=== PATIENT | female | born 1980 | race Caucasian/White ===

== ENCOUNTER 2016-10-05 17:48 | Emergency (ER) | payer OTHER ==
[2016-10-05 18:40] VITALS: BP 114/74
--- NOTE | 2016-10-05 19:18 | UC ---
Eye Complaint HPI - HPI Summary HPI Summary: patient has had a bump over the left eye lid for the past 2 weeks. - History of Current Complaint Chief Complaint: UCEye Stated Complaint: LEFT EYE COMPLAINT Time Seen by Provider: 10/05/16 19:05 Hx Obtained From: Patient Hx Last Menstrual Period: 12/20/16 Onset/Duration: Sudden Onset, Lasting Weeks Timing: Constant Severity Initially: Mild Severity Currently: Moderate Location of Injury: Eye Lid (upper) - Risk Factors Penetrating Injury Risk Factor: Negative Globe Rupture Risk Factors: Negative Acute Glaucoma Risk Factors: Negative Optic Artery Occlusion Risk Factors: Negative - Allergies/Home Medications Allergies/Adverse Reactions: Allergies Allergy/AdvReac Type Severity Reaction Status Date / Time No Known Allergies Allergy Verified 07/01/13 13:37 PMH/Surg Hx/FS Hx/Imm Hx Previously Healthy: Yes - Surgical History Surgical History: Yes Surgery Procedure, Year, and Place: T&A, D&C - Family History Known Family History: Negative: Cardiac Disease, Hypertension - Social History Alcohol Use: Rare Substance Use Type: None Smoking Status (MU): Former Smoker When Did the Patient Quit Smoking/Using Tobacco: 10/31/2014 - Immunization History Most Recent Influenza Vaccination: not this season Review of Systems Constitutional: Negative Skin: Negative Eyes: Other - bump on ENT: Negative Respiratory: Negative Cardiovascular: Negative Gastrointestinal: Negative Genitourinary: Negative Motor: Negative Neurovascular: Negative Musculoskeletal: Negative Neurological: Negative Psychological: Negative All Other Systems Reviewed And Are Negative: Yes Physical Exam Triage Information Reviewed: Yes Appearance: Well-Appearing, Well-Nourished, Pain Distress Vital Signs: Initial Vital Signs Temp 98 F 10/05/16 18:32 Pulse 69 10/05/16 18:32 Resp 16 10/05/16 18:32 BP 114/74 10/05/16 18:32 Pulse Ox 100 10/05/16 18:32 Vital Signs Reviewed: Yes Eye Exam: Normal Eyes: Positive: Conjunctiva Clear ENT: Positive: Hearing grossly normal, Pharynx normal, TMs normal Dental Exam: Normal Neck exam: Normal Neck: Positive: Supple, Nontender, No Lymphadenopathy Respiratory Exam: Normal Respiratory: Positive: Chest non-tender, Lungs clear, Normal breath sounds Cardiovascular Exam: Normal Cardiovascular: Positive: RRR, No Murmur, Pulses Normal Abdominal Exam: Normal Abdomen Description: Positive: Nontender, No Organomegaly, Soft Bowel Sounds: Positive: Present Musculoskeletal Exam: Normal Musculoskeletal: Positive: Strength Intact, ROM Intact, No Edema Neurological Exam: Normal Neurological: Positive: Alert, Muscle Tone Normal Psychological Exam: Normal Skin Exam: Normal Eye Complaint Course/Dx - Course Course Of Treatment: hx obtained, exam performed, meds reviewed, abx cream prescribed. follow up with opthalm. if needed. - Differential Dx/Diagnosis Differential Diagnosis/HQI/PQRI: Conjunctivitis, Corneal Abrasion, Detached Retina, Foreign Body, Keratitis, Penetrating Injury, Periorbital Cellulitis, Other Provider Diagnoses: chalazion Discharge - Discharge Plan Condition: Stable Disposition: HOME Prescriptions: Erythromycin TOPICAL GEL* [Erythromycin OPTH OINT*] 1 applic LEFT EYE TID #1 tube Patient Education Materials: Chalazion (ED) Referrals: Bhavya Hernandez MD [Primary Care Provider] - Additional Instructions: Chalazion: Treatment Antibiotics are not indicated since chalazion is a granulomatous condition. Small chalazia often resolve without intervention. For larger lesions , frequent hot compresses may allow them to drain although typically most clear spontaneously in weeks to months. Symptomatic patients with recalcitrant lesions can be referred to an internet network specialist for incision and curettage or direct glucocorticoid injection [9]. I am prescribing antibiotic treatement. I recommend follow up with the opthamologist if you do not see improvment in 1 - 2 weeks.
== END 2016-10-05 19:25 | disposition home or self-care (01) ==
LOC: UCCORT 17:48
DX: Z87.891 Personal history of nicotine dependence (principal); H00.14 Chalazion left upper eyelid
CPT/HCPCS: 99212; G0463

== ENCOUNTER 2018-04-19 14:58 | Emergency (ER) | payer OTHER ==
[2018-04-19 16:27] VITALS: BP 130/93
--- NOTE | 2018-04-19 16:53 | UC ---
Throat Pain/Nasal Anish HPI - HPI Summary HPI Summary: The patient is a 37-year-old female with about a week history of nasal congestion postnasal drip fever or chills. She has no chest pain or shortness of breath. - History of Current Complaint Chief Complaint: UCGeneralIllness Stated Complaint: SINUS COMPLAINT Time Seen by Provider: 04/19/18 16:48 Hx Obtained From: Patient Hx Last Menstrual Period: currently Onset/Duration: Gradual Onset, Lasting Weeks Severity: Moderate Pain Intensity: 0 Pain Scale Used: 0-10 Numeric Cough: Nonproductive Associated Signs & Symptoms: Positive: Sinus Discomfort, Nasal Discharge Related History: Prior ENT Surgery, T & A - Allergies/Home Medications Allergies/Adverse Reactions: Allergies Allergy/AdvReac Type Severity Reaction Status Date / Time No Known Allergies Allergy Verified 04/19/18 16:27 Home Medications: Home Medications SUMAtriptan TAB* [Imitrex TAB*] 100 mg PO SEE INSTRUCTIONS PRN 04/19/18 [ History Confirmed 04/19/18] PMH/Surg Hx/FS Hx/Imm Hx Previously Healthy: Yes - Surgical History Surgical History: Yes Surgery Procedure, Year, and Place: T&A, D&C - Family History Known Family History: Positive: Diabetes Negative: Cardiac Disease, Hypertension - Social History Alcohol Use: Rare Substance Use Type: None Smoking Status (MU): Former Smoker When Did the Patient Quit Smoking/Using Tobacco: 10/31/2014 - Immunization History Most Recent Influenza Vaccination: not this season Review of Systems All Other Systems Reviewed And Are Negative: Yes Constitutional: Positive: Negative Skin: Positive: Negative Eyes: Positive: Negative ENT: Positive: Sore Throat, Ear Ache, Nasal Discharge Respiratory: Positive: Cough Cardiovascular: Positive: Negative Gastrointestinal: Positive: Negative Genitourinary: Positive: Negative Motor: Positive: Negative Neurovascular: Positive: Negative Musculoskeletal: Positive: Negative Neurological: Positive: Negative Psychological: Positive: Negative Physical Exam Triage Information Reviewed: Yes Appearance: Well-Appearing, No Pain Distress, Well-Nourished Vital Signs: Initial Vital Signs Temp 98.6 F 04/19/18 16:25 Pulse 60 04/19/18 16:25 Resp 18 04/19/18 16:25 BP 130/93 04/19/18 16:25 Pulse Ox 99 04/19/18 16:25 Vital Signs Reviewed: Yes Eyes: Positive: Conjunctiva Clear ENT: Positive: Hearing grossly normal, Nasal congestion, Nasal drainage, TM bulging - R, Left retracted, Sinus tenderness Neck: Positive: Supple, Nontender, No Lymphadenopathy Respiratory: Positive: Chest non-tender, Lungs clear Cardiovascular: Positive: RRR Musculoskeletal: Positive: ROM Intact, No Edema Neurological: Positive: Alert Psychological Exam: Normal Throat Pain/Nasal Course/Dx - Differential Dx/Diagnosis Provider Diagnosis: Acute sinusitis, Bilateral serous otitis media Discharge - Sign-Out/Discharge Documenting (check all that apply): Patient Departure All imaging exams completed and their final reports reviewed: No Studies - Discharge Plan Condition: Stable Disposition: HOME Prescriptions: Azithromycin TAB* [Zithromax TAB*] 250 mg PO DAILY #6 tab Fluconazole 150 MG (NF) [Diflucan 150 mg (NF)] 150 mg PO ONCE #1 tab Patient Education Materials: Sinusitis (ED) Referrals: Purnima Maria NP [Primary Care Provider] - 7 Days (if not better) - Billing Disposition and Condition Condition: STABLE Disposition: Home
== END 2018-04-19 17:00 | disposition home or self-care (01) ==
LOC: UCCORT 14:58
DX: J01.90 Acute sinusitis, unspecified (principal); H65.93 Unspecified nonsuppurative otitis media, bilateral; Z87.891 Personal history of nicotine dependence
CPT/HCPCS: 99211; G0463

== ENCOUNTER 2019-01-20 15:10 | Emergency (ER) | payer OTHER ==
[2019-01-20 15:46] VITALS: BP 102/69
[2019-01-20] MEDS ORDERED: Acetaminophen TAB* 325 MG PO ONE (15:57)
--- NOTE | 2019-01-20 16:03 | UC ---
HPI Febrile Illness - HPI Summary HPI Summary: 38-year-old female who started experiencing upper respiratory illness symptoms with head congestion and sinus pressure 1-1/2 weeks ago. The symptoms have continued but the head congestion improved and it went to her lungs and now she feels like she has a sinus infection as well as productive cough and fever today. 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 She denies any rashes. - History of Current Complaint Chief Complaint: UCGeneralIllness Time Seen by Provider: 01/20/19 15:45 Hx Obtained From: Patient Hx Last Menstrual Period: 01/17/19 Onset/Duration: Started Days Ago - Symptoms started 1-1/2 weeks ago. Timing: Constant Initial Severity: Mild Current Severity: Moderate Pain Intensity: 7 Aggravating Factors: Nothing Associated Signs and Symptoms: Chills, Headache - Mild headache., Nausea - Allergy/Home Medications Allergies/Adverse Reactions: Allergies Allergy/AdvReac Type Severity Reaction Status Date / Time No Known Allergies Allergy Verified 01/20/19 15:38 Home Medications: Home Medications Iud 1 udc VAGINAL ONCE 01/20/19 [History Confirmed 01/20/19] Loperamide CAP* [Imodium CAP*] 4 mg PO Q4H 01/20/19 [History Confirmed 01/20/19] PMH/Surg Hx/FS Hx/Imm Hx Previously Healthy: Yes - Surgical History Surgical History: Yes Surgery Procedure, Year, and Place: T&A, D&C - Family History Known Family History: Positive: Diabetes Negative: Cardiac Disease, Hypertension - Social History Alcohol Use: Rare Substance Use Type: None Smoking Status (MU): Former Smoker When Did the Patient Quit Smoking/Using Tobacco: 10/31/2014 - Immunization History Most Recent Influenza Vaccination: not this season Review of Systems All Other Systems Reviewed And Are Negative: Yes Constitutional: Positive: Fever, Chills ENT: Positive: Nasal Discharge, Sinus Congestion, Sinus Pain/Tenderness Respiratory: Positive: Cough - Productive cough but does not look at the sputum. Gastrointestinal: Positive: Nausea Genitourinary: Positive: Negative Motor: Positive: Negative Neurovascular: Positive: Negative Musculoskeletal: Positive: Negative, Myalgia Neurological: Positive: Negative Psychological: Positive: Negative Is Patient Immunocompromised?: No Physical Exam Triage Information Reviewed: Yes Appearance: Well-Appearing, No Pain Distress, Well-Nourished Vital Signs: Initial Vital Signs Temp 101.1 F 01/20/19 15:39 Pulse 89 01/20/19 15:39 Resp 16 01/20/19 15:39 BP 102/69 01/20/19 15:39 Pulse Ox 100 01/20/19 15:39 Vital Signs Reviewed: Yes Eyes: Positive: Conjunctiva Clear ENT: Positive: Hearing grossly normal, Pharynx normal, TMs normal, Sinus tenderness - Tenderness on palpation over maxillary sinuses., Uvula midline Neck: Positive: Supple, Nontender, No Lymphadenopathy Respiratory: Positive: Lungs clear, Normal breath sounds, No respiratory distress, No accessory muscle use Cardiovascular: Positive: RRR, No Murmur, Pulses Normal, Brisk Capillary Refill Abdomen Description: Positive: Nontender, No Organomegaly, Soft. Negative: CVA Tenderness (R), CVA Tenderness (L), Distended, Guarding, Hepatomegaly, McBurney' s Point Tenderness, Splenomegaly Bowel Sounds: Positive: Present Musculoskeletal Exam: Normal Neurological Exam: Normal Psychological Exam: Normal Skin Exam: Normal Course/Dx - Course Course Of Treatment: Chest x-ray:FINDINGS: CARDIOMEDIASTINAL SILHOUETTE: The cardiomediastinal silhouette is normal. TERRANCE: The terrance are normal. PLEURA: The costophrenic angles are sharp. No pleural abnormalities are noted. LUNG PARENCHYMA: There is hyperinflation with flattening of the diaphragm and expansion of the retrosternal airspace. ABDOMEN: The upper abdomen is clear. There is no subphrenic gas. BONES AND SOFT TISSUES: No bone or soft tissue abnormalities are noted. OTHER: None. IMPRESSION: HYPERINFLATION WHICH CAN BE SEEN WITH COPD OR REACTIVE AIRWAY DISEASE. NO ACTIVE CARDIOPULMONARY DISEASE. Rapid flu test: Negative Lyme titers were drawn and are pending. I'm going to treat the patient for a sinus infection but I'm going to treat her with doxycycline to cover possible Lyme disease. Although she does not recall a tick bite, she does work in [email or web address] and there is an increased risk that she was bitten by a tick especially with today's symptoms. She is to call back in 2 or 3 days for the Lyme titer results. Even if it's negative I want her to continue the doxycycline and follow up with her primary care provider to see if she should continue the doxycycline for another week. She was given Tylenol 650 mg by mouth for her fever. - Diagnoses Provider Diagnosis: Sinusitis Is Visit Related: No Discharge ED - Sign-Out/Discharge Documenting (check all that apply): Patient Departure All imaging exams completed and their final reports reviewed: Yes - Discharge Plan Condition: Fair Disposition: HOME Prescriptions: DOXYcycline CAP(*) [DOXYcycline 100MG CAP(*)] 100 mg PO BID 14 Days #28 cap Patient Education Materials: Sinusitis (ED), Lyme Disease (ED) Referrals: Purnima Maria NP [Primary Care Provider] - Additional Instructions: Increase fluids, rest, Tylenol every 4 hours for fever and Motrin every 8 hours may alternate the 2 medications. No dairy products, antacids or multivitamins 2 hours before you take the doxycycline and 2 hours after you take the doxycycline however definitely take it with food. Follow-up with your primary care provider before the prescription is completed to see if they would like to continue the doxycycline for another week to cover Lyme disease. Go to the emergency room if you have any worsening symptoms. - Billing Disposition and Condition Condition: FAIR Disposition: Home
[2019-01-20 16:27] LABS: Influenza A Molecular NEGATIVE (Negative); Influenza B Molecular NEGATIVE (Negative)
--- NOTE | 2019-01-23 12:02 | UC ---
- Progress Note Progress Note: lyme negative no change lazarus 01/23/19 Course/Dx - Diagnoses Provider Diagnoses: Sinusitis Is Visit Related: No Discharge ED - Sign-Out/Discharge Documenting (check all that apply): Post-Discharge Follow Up All imaging exams completed and their final reports reviewed: Yes - Discharge Plan Condition: Fair Disposition: HOME Prescriptions: DOXYcycline CAP(*) [DOXYcycline 100MG CAP(*)] 100 mg PO BID 14 Days #28 cap Patient Education Materials: Lyme Disease (ED), Sinusitis (ED) Referrals: Purnima Maria NP [Primary Care Provider] - Additional Instructions: Increase fluids, rest, Tylenol every 4 hours for fever and Motrin every 8 hours may alternate the 2 medications. No dairy products, antacids or multivitamins 2 hours before you take the doxycycline and 2 hours after you take the doxycycline however definitely take it with food. Follow-up with your primary care provider before the prescription is completed to see if they would like to continue the doxycycline for another week to cover Lyme disease. Go to the emergency room if you have any worsening symptoms. - Billing Disposition and Condition Condition: FAIR Disposition: Home
== END 2019-01-20 16:44 | disposition home or self-care (01) ==
LOC: UCCORT 15:10
DX: J32.9 Chronic sinusitis, unspecified (principal); Z87.891 Personal history of nicotine dependence
CPT/HCPCS: 36415; 71046; 86618; 99212; A9270-GY; G0463